=== PATIENT | female | born 1965 | race Caucasian/White ===

== ENCOUNTER → 2020-07-14 16:53 | Outpatient (CLI) | payer MEDICARE, SELFPAY ==
[2020-07-14 18:58] LABS: Coronavirus 19 IgG Antibody Negative (Negative); Coronavirus 19 IgM Antibody Negative (Negative)
== END ==
PROVIDERS: Visit Provider Internal Medicine Gastroenterology
DX: Z01.812 Encounter for preprocedural laboratory examination (principal); Z11.52 Encounter for screening for COVID-19; Z12.11 Encounter for screening for malignant neoplasm of colon
CPT/HCPCS: 36415; 86328

== ENCOUNTER 2020-07-17 12:07 | Day surgery (SDC) | payer MEDICARE, SELFPAY ==
[2020-07-11 13:37] VITALS: BMI 23.3
[2020-07-17] VITALS (7 sets, daily range): BP systolic 124–161; BP diastolic 54–81; PULSE 52–67; RESP 18–20; TEMP 36.3–36.5; O2SAT 99–100
--- NOTE | 2020-07-17 13:57 | HMH.PROC ---
[facility] Procedure Note Procedure Note:: Colonoscopy Procedure Report: Colonoscopy with cold snare polypectomy Endoscopist: Alex Castano II, MD Referring physician: Gisele Garcia MD/CORY Arvizu Date of Procedure: July 17, 2020 Equipment: Olympus 180 variable stiffness pediatric colonoscope Sedation: MAC sedation Indication: Mrs. Lanza is a 55-year-old female who is here for screening colonoscopy. She did have an attempted colonoscopy in November 2015 and report states that the colonoscope could not be passed beyond the splenic flexure because of acute angulation (Dr. Shakeel Sales). The patient does report that her constipation has improved since she started Ozempic for her arthritis. The patient does have some occasional discomfort in the lower abdomen. The patient reports no rectal bleeding, unintentional weight loss or family history of colon cancer. Procedure: Prior to the procedure, a history and physical exam was performed, and patient's medications and allergies were reviewed. The risks, benefits and alternatives of the sedation and procedure were discussed with the patient. All questions were answered and informed consent was obtained. The patient was brought to the procedure room. Patient identification and proposed procedure were verified by the physician and the nurse. The patient was placed in a left lateral decubitus position and the scope was passed under direct vision. Throughout the procedure, the patient's blood pressure, pulse, and oxygen saturations were monitored continuously. The colonoscopy was accomplished without difficulty. The patient tolerated the procedure well. Findings: On digital rectal examination there was normal rectal tone. There were no external hemorrhoids. The colonoscope was introduced through the anal canal to the rectum and advanced to the cecum. The ileocecal valve and appendiceal orifice were identified. The scope was advanced a short distance into the ileum which appeared grossly normal. The scope was then withdrawn into the colon. The cecum and ascending colon were normal. There was 2 diminutive polyps (transverse x1 (4 mm) and sigmoid x1 (3 mm)) which were removed via cold snare polypectomy. There was some angulation in the sigmoid colon possibly from prior hysterectomy. There were scattered diverticuli throughout the descending and sigmoid colon (LEFT colon). The rectum itself was normal. Upon retroflexion within the rectum there were grade 1-2 internal hemorrhoids. The preparation was excellent throughout with [place] Preparation Score of 9. The cecal time was 12 minutes. Impression: 1. Diminutive colonic polyps x2 2. Left-sided diverticulosis 3. Grade 1-2 internal hemorrhoids Plan: I will follow up the polyp pathology and recommend repeat colonoscopy again in 5-7 years based upon the polyp histology. I would encourage a fiber bowel regimen on a long-term daily maintenance basis.
== END 2020-07-17 14:50 | disposition home or self-care (01) ==
LOC: OUTP 12:11
PROVIDERS: PCP Family Medicine; Visit Provider Internal Medicine Gastroenterology
PROC: 0DJD8ZZ Inspection of Lower Intestinal Tract, Via Natural or Artificial Opening Endoscopic (ICD-10-PCS; CPT 45378; principal; 2020-07-17 13:00)
DX: Z12.11 Encounter for screening for malignant neoplasm of colon (principal); K63.5 Polyp of colon; K57.30 Diverticulosis of large intestine without perforation or abscess without bleeding; K64.0 First degree hemorrhoids; F32.9 Major depressive disorder, single episode, unspecified; G43.909 Migraine, unspecified, not intractable, without status migrainosus; E78.5 Hyperlipidemia, unspecified; K21.9 Gastro-esophageal reflux disease without esophagitis; Z88.0 Allergy status to penicillin; Z79.899 Other long term (current) drug therapy
CPT/HCPCS: 45385; 88305

== ENCOUNTER → 2020-08-18 10:11 | Outpatient (CLI) | payer MEDICAID, SELFPAY ==
[2020-08-18 14:54] LABS: Basophils % 0.6 % (0.1-2.0); Eosinophils # 0.1 K/mm3 (0.0-0.4); Eosinophils % 1.7 % (0.1-12.0); Hematocrit 41.8 % (37.0-47.0); Hemoglobin 13.4 g/dL (12.2-16.2); Lymphocytes % 42.1 % (10-50); Mean Corpuscular Hemoglobin 31.9 pg (27.0-31.2); Mean Corpuscular Volume 99.7 fl (81-99); Mean Platelet Volume 9.3 fl (7.4-10.4); Monocytes # 0.2 K/mm3 (0.1-1.0); Monocytes % 5.1 % (1.7-9.3); Neutrophils # 2.4 K/mm3 (1.8-7.8); Neutrophils % 50.4 % (37.0-80.0); Platelet Count 283 K/mm3 (142-424); Red Blood Count 4.19 M/mm3 (4.20-5.40); Red Cell Distribution Width 13.2 % (11.5-17.5); White Blood Count 4.7 K/mm3 (4.8-10.8)
[2020-08-18 16:15] LABS: Chloride 112 mmol/L (98-107); Potassium 3.7 mmoL/L (3.5-5.1); Sodium 140 mmol/L (136-145)
[2020-08-18 16:18] LABS: Anion Gap 9.7 mEq/L (5-15); Blood Urea Nitrogen 21 mg/dl (7-17); Calcium 9.4 mg/dl (8.4-10.2); Carbon Dioxide 22 mmol/L (22.0-30.0); Estimated Glomerular Filt Rate 57 ml/min (>60); GFR (African American) 69 ML/MIN (>60); Glucose 98 mg/dl (74-100)
[2020-08-18 17:50] LABS: Coronavirus 19 IgG Antibody Negative (Negative); Coronavirus 19 IgM Antibody Negative (Negative)
== END ==
PROVIDERS: Visit Provider Urology
DX: Z01.812 Encounter for preprocedural laboratory examination (principal); Z20.822 Contact with and (suspected) exposure to COVID-19; N39.41 Urge incontinence; R32 Unspecified urinary incontinence
CPT/HCPCS: 36415; 80048; 85025; 86328

== ENCOUNTER 2020-08-21 09:38 | Day surgery (SDC) | payer MEDICAID, SELFPAY ==
[2020-08-10 11:57] VITALS: BMI 23.1
[2020-08-21 10:20] VITALS: BP 120/72; PULSE 53; RESP 18; TEMP 36.1; O2SAT 99
[2020-08-21 13:35] VITALS: BP 120/78; PULSE 70; RESP 18; O2SAT 98
[2020-08-21 13:45] VITALS: BP 132/79; PULSE 64; RESP 18; O2SAT 97
[2020-08-21 14:05] VITALS: BP 151/93; PULSE 63; RESP 18; O2SAT 99
--- NOTE | 2020-08-21 14:44 | HMH.ANESCL ---
[facility] Anesthesia Checklist - Patient Identification Patient Identification: Arm Band - Structural Data Admitted From: Home Planned Operative Procedure/s: cystoscopy Consent for Planned Operative Procedure(s) Verified: Yes Verified Documents: Surgical Consent, History and Physical - NPO Status Verified Time NPO: 00:00 - Additional verifications Anesthesia Reactions: No Hx Blood Transfusions: No Blood Transfusion Reaction: No - Airway Assessment C-Spine Mobility Assessed: Yes (mp2) TMJ Mobility Assessed: Yes Dentition: Good Dentition (lower partial removed) - Neurological Assessment Level of Consciousness: Awake, Alert - Anesthesia Plan Anesthesia Risk discussed: Yes Anesthesia Plan: Verified ASA Class: III Anesthesia Type: MAC [facility] History I have reviewed the patient's past medical history: Yes Medical History: Reports:: Cancer (cervical, skin ca x2), Hyperlipidemia, Kidney Stones, Migraine Denies:: Diabetes Mellitus Type 1, Diabetes Mellitus Type 2, Internal Pacemaker, MRSA, Seizures *Have you ever received a pneumonia vaccine?: No *Have you received a flu vaccine this season?: No Other Medical History: Reports: Fibromyalgia. Denies: Blood Transfusion Reaction Anesthesia experience/problems:: nac Laterality Cases: Right: Arthroscopy Knee Other Surgeries: Yes: Cancer Surgery, Colonoscopy, Hysterectomy-Total, Sinus Surgery, Skin Cancer Excision, Other. No: Pacemaker Amputation: No Fractures: No - *Social History Last grade of school completed: High school graduate Smoking Status: Never smoker Alcohol Intake: never Alcohol Intake Frequency:: other Substance Use Type: denies use *Occupational Status:: disabled Housing: house Household Members: spouse *Travel in the last 8 weeks: None Family Hx:: Heart Attack, Hypertension, Stroke, Diabetes, Asthma
--- NOTE | 2020-08-21 14:54 | P.OP_ITS ---
Date of procedure: 08/21/20 Pre-op Diagnosis:: Bladder pain Post-op Diagnosis:: Interstitial cystitis, urethral stenosis Procedure performed:: Cystoscopy with urethral dilation and hydrodistention of the bladder Surgeon:: Aashish North MD EVP CHIEF EXPLORATION OFFICER:: Fox Hayward Anesthesia: LMA Estimated blood loss (mL): 0 Clinical Note:: 55-year-old white female with long history of bladder pain in the lower urinary tract symptoms presents for cystoscopic evaluation today. She has reported history of interstitial cystitis in the past. Operative findings:: There was urethral stenosis and the urethra was dilated without difficulty. The bladder showed signs of interstitial cystitis after hydrodistention. Operative note:: Patient taken to the operating room after informed consent was obtained. She was placed on the operating table in the supine position and general anesthesia administered. Preoperative antibiotics administered. She was then placed into the dorsal lithotomy position and prepped and draped in the standard surgical fashion. The urethral meatus appeared stenotic and the scope would not pass easily so the urethra was dilated with a 22, 24 and 26 Portuguese dilators. The 22 Portuguese scope then passed easily into the bladder. The bladder was examined in a systematic fashion. There is no evidence of mucosal abnormalities, stones, trabeculation or cellule formation. The ureteral orifices were in their normal anatomic position with clear reflux of urine. With 3 L saline bag at the sabi ropriate height above the patient's abdomen saline was then allowed to flow through the tubing into the bladder under gravity. When the bladder pressure increased to where there was no flow the saline was stopped and the bladder emptied. There was 550 cc in the bladder after the first field. We then looked back into the bladder and there was evidence of terminal hematuria and an ulcerated area to the right of the right trigone. There is also some bleeding noted from the floor the bladder and lateral to the left trigone. The bladder was distended once again and emptied and again 550 cc was collected with terminal hematuria. Looking back into the bladder there were no petechial hemorrhages but the ulcerated areas were still bleeding. The bladder was distended once again and again only 550 cc were obtained again there was some terminal blood. Urojet then placed into the urethra. Patient tolerated procedure well no complications. She does have evidence of interstitial cystitis and a prescription for Elmiron was given at discharge today. I will see her back in 6 weeks in follow-up. Condition: stable Disposition: same day Specimens:: None Complications:: None
[2020-08-21 15:44] VITALS: TEMP 43
== END 2020-08-21 14:09 | disposition home or self-care (01) ==
LOC: OR 09:41
PROVIDERS: PCP Family Medicine; Visit Provider Urology
PROC: 0TJB8ZZ Inspection of Bladder, Via Natural or Artificial Opening Endoscopic (ICD-10-PCS; CPT 52000; principal; 2020-08-21 11:15)
DX: N30.11 Interstitial cystitis (chronic) with hematuria; N32.89 Other specified disorders of bladder; E78.5 Hyperlipidemia, unspecified; G43.909 Migraine, unspecified, not intractable, without status migrainosus; Z85.828 Personal history of other malignant neoplasm of skin; Z85.41 Personal history of malignant neoplasm of cervix uteri; Z87.442 Personal history of urinary calculi; Z82.3 Family history of stroke; Z82.5 Family history of asthma and other chronic lower respiratory diseases; Z83.3 Family history of diabetes mellitus; Z79.899 Other long term (current) drug therapy; Z88.0 Allergy status to penicillin
CPT/HCPCS: 52281; 52260; 96374; J1956

== ENCOUNTER → 2022-08-14 11:40 | Outpatient (CLI) | payer MEDICARE, MEDICAID, SELFPAY | PROVIDERS: PCP Family Medicine; Visit Provider Family Medicine | DX: Z20.822 Contact with and (suspected) exposure to COVID-19 (principal); R05.9 Cough, unspecified; J02.9 Acute pharyngitis, unspecified | CPT/HCPCS: C9803; U0003; U0005 ==

== ENCOUNTER 2023-10-27 18:00 | Outpatient (CLI) | payer MEDICARE, MEDICAID, SELFPAY | END 2023-10-27 23:59 | disposition home or self-care (01) | LOC: LAB.DROPOF 10-28 08:20 | PROVIDERS: PCP Nurse Practitioner Family; Visit Provider Nurse Practitioner Family | DX: R51.9 Headache, unspecified (principal); R50.9 Fever, unspecified; R05.9 Cough, unspecified | CPT/HCPCS: 87635 ==

== ENCOUNTER 2024-04-26 16:54 | Outpatient (CLI) | payer MEDICARE, MEDICAID, SELFPAY ==
[2024-04-26 16:14] LABS: Basophils % 0.7 % (0.1-2.0); Eosinophils # 0.1 K/mm3 (0.0-0.4); Eosinophils % 1.6 % (0.1-12.0); Hematocrit 38.5 % (37.0-47.0); Hemoglobin 13.1 g/dL (12.2-16.2); Lymphocytes # 1.6 K/mm3 (0.7-4.5); Lymphocytes % 38.9 % (10-50); Mean Corpuscular HGB Conc 33.9 g/dL (31.8-35.4); Mean Corpuscular Hemoglobin 31.6 pg (27.0-31.2); Mean Corpuscular Volume 93.2 fl (81-99); Mean Platelet Volume 9.8 fl (7.4-10.4); Monocytes # 0.3 K/mm3 (0.1-1.0); Monocytes % 6.1 % (1.7-9.3); Neutrophils # 2.2 K/mm3 (1.8-7.8); Neutrophils % 52.8 % (37.0-80.0); Platelet Count 251 K/mm3 (142-424); Red Blood Count 4.14 M/mm3 (4.20-5.40); White Blood Count 4.2 K/mm3 (4.8-10.8)
[2024-04-26 16:48] LABS: Chloride 103 mmol/L (98-107); Sodium 138 mmol/L (136-145)
[2024-04-26 16:51] LABS: Blood Urea Nitrogen 17 mg/dl (7-17); Calcium 8.8 mg/dl (8.4-10.2); Carbon Dioxide 27 mmol/L (22.0-30.0); Estimated Glomerular Filt Rate 102 ml/min (>60); GFR (African American) 123 ML/MIN (>60); Glucose 106 mg/dl (74-100)
== END 2024-04-26 23:59 | disposition home or self-care (01) ==
LOC: LAB.DROPOF 16:54
PROVIDERS: PCP Family Medicine; Visit Provider Family Medicine
DX: R05.9 Cough, unspecified (principal); R04.2 Hemoptysis; R10.9 Unspecified abdominal pain
CPT/HCPCS: 80048; 85025

== ENCOUNTER 2025-02-14 08:56 | Outpatient (CLI) | payer MEDICARE, SELFPAY ==
--- OUTSIDE RECORDS SUMMARY | 2025-02-14 08:58 | XMS_ITS | Clinical Summary ---
Author Organization [facility] Address [address] [place] [address] Care Team Providers Care Pharmacovigilance Scientist Name Role Phone Gisele Garcia MD Primary Care Provider + Allergies Active Allergy Reactions Criticality Noted Date Comments Penicillins Rash Low 01/29/2018 Medications butalbital-aceta minophen-caffein e (FIORICET, ESGIC) 50-325-40 MG per tablet Take 1 tablet by mouth Every 6 (Six) Hours As Needed for Headache. Active HYDROcodone-acet aminophen (NORCO) 5-325 MG per tablet Take 1 tablet by mouth 2 (Two) Times a Day As Needed. Active pravastatin (PRAVACHOL) 40 MG tablet Take 1 tablet by mouth Daily. Active pentosan polysulfate (ELMIRON) 100 MG capsule Take 1 capsule by mouth 3 (Three) Times a Day Before Meals. Active topiramate (TOPAMAX) 50 MG tablet Take 1 tablet by mouth 2 (Two) Times a Day. Active sertraline (ZOLOFT) 100 MG tablet Take 1 tablet by mouth Daily. Active amitriptyline (ELAVIL) 25 MG tablet Take 1 tablet by mouth Every Night. Active oxybutynin XL (DITROPAN XL) 15 MG 24 hr tablet 08/26/2022 Act alphonse pantoprazole (PROTONIX) 40 MG EC tablet 10/01/2022 Active tiZANidine (ZANAFLEX) 4 MG tablet 09/16/2022 Active Active Problems Problem Noted Date Diagnosed Date Preop cardiovascular exam 10/11/2022 Assessment & Plan (10/11/2022 2:33 PM EDT): She reports she is feeling well and denies any chest pain, shortness of air, edema, palpitations, dizziness, or syncope. She had echo on 03/05/2022. A stress test on 04/08/2022. Normal heart cath on 05/10/2022. She has not been tested for SEVEN. She is not on any beta-blockers or blood thinners. Her blood pressure is well controlled. Abnormal stress test 04/26/2022 Overview (04/26/2022): Added automatically from request for surgery [id number] Precordial pain 04/26/2022 Overview (04/26/2022): Added automatically from request for surgery [id number] Hyperlipidemia 04/26/2022 Overview (04/26/2022): Added automatically from request for surgery [id number] Family hx of ischem heart dis and oth dis of the circ sys 04/26/2022 Overview (04/26/2022): Added automatically from request for surgery [id number] Family History Medical History Relation Name Comments Heart disease Mother Relation Name Status Comments Mother Social History Tobacco Use Types Packs/Day Years Used Date Smoking Tobacco: Never Smokeless Tobacco: Never Tobacco Cessation:Counseling Given: Not Answered Alcohol Use Standard Drinks/Week Comments Not Currently 0 (1 standard drink = 0.6 oz pur e alcohol) occasional AUDIT-C Answer Date Recorded Q1: How often do you have a drink containing alcohol? Never 05/10/2022 Q2: How many drinks containi ng alcohol do you have on a typical day when you are drinking? Patient does not drink Q3: How often do you have si x or more drinks on one occasion? Never 05/10/2022 PHQ-2 Answer Date Recorded Retired PHQ-9: Brief Depression Severity Measure Score 0 05/10/2022 Abuse Screen Answer Date Recorded Unsafe at Home or Work/School Not on file Feels Threatened by Someone? Not on file Does Anyone Keep You from Co ntacting Others or Doint Things Outside the Home? Not on file 05/12/2023 Physical Sign of Abuse Present Not on file 1 07/12/2022 Housing Stability Answer Date Recorded Current Living Arrangements Not on file 04/30 Potentially Unsafe Housing Conditions Not on shruthi e 05/12/2023 Family and Community Support Answer Isreal e Recorded Help with Day-to-Day Activities Not on file 04/08/2023 Lonely or Isolated Not on file 04/08/2023 Employment Answer Date Recorded Do you want help finding or keeping work or a aayush b? Not on file 04/08/2023 Disabilities Answer Date Recorded Concentrating, Remembering, or Making Decisions Difficulty Not on file 05/12/2023 Doing Errands Independently Difficulty Not on fi le 05/12/2023 Education Answer Date Recorded Help with school or training? Not on file Preferred Language Not on file 04/08/2023 Comments No Sex and Gender Information Value Date Recorded Sex Assigned at Not on file Legal Sex Female 1:43 PM EDT Gender Identity Not on file Sexual Orientation Not on file Last Filed Vital Signs Vital Sign Reading Time Taken Comments Blood Pressure 120/70 10/11/2022 12:39 PM EDT Pulse 78 10/11/2022 12:39 PM EDT Temperature 36.3 C (97.3 F) 05/10/2022 8:26 AM EST Respiratory Rate 16 05/10/2022 10:38 AM EST Oxygen Saturation 98% 10/11/2022 12:39 PM EDT Inhaled Oxygen Concentration - - Weight 69.9 kg (154 lb) 10/11/2022 12:39 PM EDT Height 167.6 cm (5' 6 ) 10/11/2022 12:39 PM EDT Body Mass Index 24.86 10/11/2022 12:39 PM EDT Plan of Treatment Health Maintenance Due Date Last Done Comments Annual Gynecologic Pelvic an d Breast Exam 1965 COLOGUARD 02/17/2008 COLON CANCER SCREENING 5 YEA R SIGMOIDOSCOPY 02/17/2008 COLONOSCOPY 02/17/2008 COLORECTAL CANCER SCREENING 02/17/2008 CT COLONOGRAPHY 02/17/2008 FECAL OCCULT BLOOD TEST 02/17/2008 FIT Testing (1 year) 02/17/2008 Pneumococcal Vaccine 50+ (1 of 1 - PCV) 2013 ZOSTER VACCINE (1 of 2) 2013 MAMMOGRAM 12/02/2020 12/02/2018 ANNUAL WELLNESS VISIT 10/11/2022 HEPATITIS C SCREENING 10/11/2022 LIPID PANEL 05/10/2023 05/10/2022 COVID-19 Vaccine (3 - 2023-2 5 season) 2024 09/28/2020, 08/31/2020 INFLUENZA VACCINE 03/30/2025 03/22/2017, , 06/26/2016, Additional history exists TDAP/TD VACCINES (2 - Td or Tdap) 12/03/2026 017 Procedures Procedure Name Priority Date/Time Associated Diagnosis Comments LIPID PANEL STAT 05/10/2022 8:29 AM EST from Last 3 Months or Most Recently Relevant to Health Maintenance Results * (ABNORMAL) Lipid Panel (05/10/2022 8:29 AM EST) Total Cholesterol 261(H) 0 - 200 mg/dL 05/10/2022 9:29 AM EST [facility] Triglycerides 241(H) 0 - 150 mg/dL 05/10/2022 9:29 AM EST [facility] HDL Cholesterol 65(H) 40 - 60 mg/dL 05/10/2022 9:29 AM EST [facility] LDL Cholesterol 152(H) 0 - 100 mg/dL 05/10/2022 9:29 AM EST [facility] VLDL Cholesterol 44(H) 5 - 40 mg/dL 05/10/2022 9:29 AM EST [facility] LDL/HDL Ratio 2.27 05/10/2022 9:29 AM EST [facility] Blood Line / Unknown 05/10/2022 8: 29 AM EST 05/10/2022 8:56 AM EST [facility] - 05/10/2022 9:29 AM EST Cholesterol Reference Ranges (U.S. Department of Health and Human Services ATP III Classifications) Desirable <200 mg/dL Borderline High 200-239 mg/dL High Risk >240 mg/dL Triglyceride Reference Ranges (U.S. Department of Health and Human Services ATP III Classifications) Normal <150 mg/dL Borderline High 150-199 mg/dL High 200-499 mg/dL Very High >500 mg/dL HDL Reference Ranges (U.S. Department of Health and Human Services ATP III Classifications) Low <40 mg/dl (major risk factor for CHD) High >60 mg/dl ('negative' risk factor for CHD) LDL Reference Ranges (U.S. Department of Health and Human Services ATP III Classifications) Optimal <100 mg/dL Near Optimal 100-129 mg/dL Borderline High 130-159 mg/dL High 160-189 mg/dL Very High >189 mg/dL Sophia Finnegan APRN LAB BLOOD ORDERABLES Final Result [facility]
[address] [place] [address], from Last 3 Months or Most Recently Relevant to Health Maintenance [place] [address] [place] [address] MEDICARE ADVANTAGE [employer] MEDICA[employer] Care Teams Pharmacovigilance Scientist Relationship Specialty Start Date End Date Gisele Garcia MD [address] [place] [id number] PCP - General Family Medicine 01/29/18
--- OUTSIDE RECORDS SUMMARY | 2025-02-14 08:58 | XMS_ITS | Clinical Summary ---
Author Organization [facility] Address [address] [place] [address], [address] [place] [address] Care Team Providers Care Professor Of Poultry Science Name Role Phone Gisele Garcia MD Primary Care Provider [phone] Social History Tobacco Use Types Packs/Day Years Used Date Smoking Tobacco: Never Assessed Comments Unknown Sex and Gender Information Value Date Recorded Sex Assigned at Not on file Legal Sex Female 2:16 PM EDT Gender Identity Not on file Sexual Orientation Not on file Plan of Treatment Not on file Insurance [facility] MEDICAID Care Teams Professor Of Poultry Science Relationship Specialty Start Date End Date Gisele Garcia MD [address] [facility], [address] [place] [address] PCP - General 12/02/18
--- NOTE | 2025-02-14 09:00 | MM_ITS ---
FINAL REPORT CLINICAL HISTORY: VERIFY CLIP PLACEMENT FINDINGS: MAMMOGRAM RIGHT TECHNIQUE: Standard digital 2-D views COMPARISON: Screening mammogram 12/29/2024 and diagnosed 01/13/2025 DENSITY: There are scattered areas of fibroglandular density FINDINGS: Post biopsy marker clip is noted to be in satisfactory position. Postbiopsy changes are noted. Calcifications of interest are markedly reduced in number reflecting adequate sampling from recent biopsy. IMPRESSION: Biopsy marker clip in good position ASSESSMENT: A post-procedure mammogram is used to confirm the position and deployment of a breast tissue marker after a biopsy RECOMMENDATION: 6 month mammographic follow-up as part of normal post benign biopsy surveillance Authenticated and ERN
--- NOTE | 2025-02-14 09:00 | MM_ITS ---
FINAL REPORT CLINICAL HISTORY: RIGHT BREAST CALCS FINDINGS: STEREOTACTIC GUIDED RIGHT BREAST BIOPSY, CLIP PLACEMENT, SPECIMEN RADIOGRAPH AND POST BIOPSY MAMMOGRAM Indication: Suspicious calcifications Findings: The stereotactic guided breast biopsy procedure was explained in detail to the patient including potential risk and benefits. The patient voiced an understanding of the procedure, was given an opportunity to ask questions, after which informed consent was obtained. The patient was positioned upon the stereotactic unit in the prone position. The breast was prepped in the usual sterile fashion. A lateral to medial approach was utilized. Subcutaneous soft tissues were anesthetized with lidocaine with epinephrine. Subsequently, with intermittent stereotactic guidance, the stereotactic biopsy needle was advanced into the breast in the region of the mammographic abnormality corresponding to recent diagnostic mammogram. Multiple vacuum assisted core samples were obtained. Sampling was thought to be adequate and the biopsy clip marker was deployed in the region of biopsy. Additional imaging as detailed below was performed. Specimen radiograph: Calcifications confirmed adequate Post procedure routine CC and MLO view mammogram: Post biopsy changes. Biopsy marker clip noted to be in the appropriate location. Calcifications of interest near completely removed. Patient tolerated the procedure well. No immediate complications. IMPRESSION: 1. Technically successful stereotactic guided biopsy of right breast calcifications 2. Biopsy marker clip deployed 3. Post biopsy mammogram obtained as above Histopathology results reveal fat necrosis without atypical hyperplasia or carcinoma. Pathology is concordant with mammographic findings. Recommend 6 month mammographic follow-up as routine benign postbiopsy surveillance. Given benign findings as above short-term mammographic follow-up right breast is recommended in 6 months as part of normal benign biopsy surveillance Authenticated and ERN
--- NOTE | 2025-02-14 09:00 | MM_ITS ---
FINAL REPORT CLINICAL HISTORY: SURGICAL SPECIMEN FINDINGS: Specimen radiograph shows calcifications of interest within multiple core tissue specimens. Authenticated and ERN
[2025-02-14] MEDS: HYDROCODONE/APAP 5/325 MG TABLET 1 TAB PO (09:05)
[2025-02-14] MEDS: LIDOCAINE 1% W/EPI 1:100,000 20ML VIAL IJ (11:56)
[2025-02-14] MEDS: RAD-SODIUM CHLORIDE 0.9% 250ML BAG 100 ML IV (11:56)
== END 2025-02-14 23:59 | disposition home or self-care (01) ==
LOC: RAD 08:57
PROVIDERS: Visit Provider Family Medicine
DX: N64.1 Fat necrosis of breast (principal); R92.8 Other abnormal and inconclusive findings on diagnostic imaging of breast
CPT/HCPCS: 19081; 76098; 77065; J2004; J7050

== ENCOUNTER 2025-06-14 15:20 | Outpatient (CLI) | payer MEDICARE, SELFPAY ==
[2025-06-15 15:45] LABS: Hematocrit 41.3 % (37.0-47.0); Hemoglobin 12.8 g/dL (12.2-16.2); Immature Granulocytes % 0.2 %; Mean Corpuscular HGB Conc 31.0 g/dL (31.8-35.4); Mean Corpuscular Hemoglobin 30.7 pg (27.0-31.2); Mean Corpuscular Volume 99.0 fl (81-99); Nucleated Red Blood Cells % 0 %; Platelet Count 259 K/mm3 (142-424); Red Blood Count 4.17 M/mm3 (4.20-5.40); Red Cell Distribution Width-SD 52.8 fL; White Blood Count 5.0 K/mm3 (4.8-10.8)
[2025-06-15 16:36] LABS: 25-OH Vitamin D, Total 13.2 ng/mL (30-100)
--- OUTSIDE RECORDS SUMMARY | 2025-06-15 20:42 | XMS_ITS | Encounter Summary ---
Author Organization [facility] Address [address] [place] [address] Care Team Providers Care Pig Conveyor Operator Name Role Phone Gisele Garcia MD Primary Care Provider + Reason for Visit * Reason Onset Date Comments - FADIA 06/14/2025 Encounter Details Date Type Department Care Team (Late st Contact Info) Description 06/14/2025 Telephone [facility] [address] [place] [address] Lizeth Salinas MD [address] [place] [address] - FADIA Social History Tobacco Use Types Packs/Day Years Used Date Smoking Tobacco: Never Smokeless Tobacco: Never Alcohol Use Standard Drinks/Week Comments Not Currently [...] on file Sexual Orientation Not on file documented as of this encounter Miscellaneous Notes * Telephone Encounter - Fracisco Landers CMA - 06/14/2025 3:31 PM EST ADVISED PATIENT TO GO TO NEAREST ER TO BE CHECKED OUT FOR SYMPTOMS * Telephone Encounter - Rohan Jackson RegSched Rep - 06/14/2025 3:26 PM EST Caller: Leela Lanza Relationship to patient: Self Best call back number: [phone] Chief complaint: PATIENT NEEDS TO BE SEEN DUE TO BACK AND SHOULDER PAINS ALSO ON JAW WITH HEART PALP Type of visit: FOLLOW-UP Requested date: HOLDEN documented in this encounter Plan of Treatment Not on file documented as of this encounter Visit Diagnoses Not on filedocumented in this encounter Care Teams Pig Conveyor Operator Relationship Specialty Start Date End Date Gisele Garcia MD [address] [place] [address] PCP - General Family Medicine 01/29/18 documented as of this encounter
--- OUTSIDE RECORDS SUMMARY | 2025-06-15 20:43 | XMS_ITS | Clinical Summary ---
Author Organization [facility] Address [address] [place] [address], [address] [place] [address] Care Team Providers Care Survey Superintendent Name Role Phone Gisele Garcia MD Primary Care Provider [phone] Social History Tobacco Use Types Packs/Day Years Used Date Smoking Tobacco: Never Assessed Comments Unknown Sex and Gender Information Value Date Recorded Sex Assigned at Not on file Legal Sex Female 2:16 PM EDT Gender Identity Not on file Sexual Orientation Not on file Plan of Treatment Not on file Insurance [facility] MEDICAID Care Teams Survey Superintendent Relationship Specialty Start Date End Date Gisele Garcia MD [address] [facility], [address] [place] [address] PCP - General 12/02/18
--- OUTSIDE RECORDS SUMMARY | 2025-06-15 20:43 | XMS_ITS | Clinical Summary ---
Author Organization [facility] Address [address] [place] [address] Care Team Providers Care Clinical Statistics Manager Name Role Phone Gisele Garcia MD Primary [...] (04/26/2022): Added automatically from request for surgery [id number] Precordial pain 04/26/2022 Overview (04/26/2022): Added automatically from request for surgery [id number] Hyperlipidemia 04/26/2022 Overview (04/26/2022): Added automatically from request for surgery [id number] Family hx of ischem heart dis and oth dis of the circ sys 04/26/2022 Overview (04/26/2022): Added automatically from request for surgery [id number] Encounters Date Type Department Care Team Description 06/14/2025 Telephone [facility] [address] [place] [address][email or web address]- REQUEST from Last 3 Months Family History Medical History Relation Name Comments [...] C SCREENING 10/11/2022 LIPID PANEL 05/10/2023 05/10/2022 INFLUENZA VACCINE 01/28/2025 03/22/2017, , 06/26/2016, Additional history exists TDAP/TD VACCINES (2 - Td or Tdap) 12/03/2026 017 Procedures Procedure Name Priority Date/Time Associated Diagnosis Comments LIPID PANEL STAT 05/10/2022 8:29 AM EST from Last 3 Months or Most Recently Relevant to Health Maintenance Results * (ABNORMAL) Lipid Panel (05/10/2022 8:29 AM EST) Total Cholesterol 261(H) 0 - 200 mg/dL 05/10/2022 9:29 AM EST [facility] Triglycerides 241(H) 0 - 150 mg/dL 05/10/2022 9:29 AM EST [facility] HDL Cholesterol 65(H) 40 - 60 mg/dL 05/10/2022 9:29 AM EST [facility] LDL Cholesterol 152(H) 0 - 100 mg/dL 05/10/2022 9:29 AM EST [facility] VLDL Cholesterol 44(H) 5 - 40 mg/dL 05/10/2022 9:29 AM EST [facility] LDL/HDL Ratio 2.27 05/10/2022 9:29 AM EST [facility] Blood Line / Unknown 05/10/2022 8: 29 AM EST 05/10/2022 8:56 AM EST [facility] - 05/10/2022 9:29 AM EST Cholesterol [...] Finnegan APRN LAB BLOOD ORDERABLES Final Result [facility]
[address] [place] [address], from Last 3 Months or Most Recently Relevant to Health Maintenance Insurance [place] [address] [address] MEDICARE ADVANTAGE [employer] Care Teams Clinical Statistics Manager Relationship Specialty Start Date End Date Gisele Garcia MD [address] [place] [id number] PCP - General Family Medicine 01/29/18
[2025-06-17 08:43] LABS: Hepatitis B Surface Antigen Negative (Negative)
== END 2025-06-14 23:59 | disposition home or self-care (01) ==
LOC: LAB.DROPOF 06-15 20:27
PROVIDERS: PCP Nurse Practitioner Family; Visit Provider Nurse Practitioner Family
DX: R42 Dizziness and giddiness (principal); R55 Syncope and collapse; R53.83 Other fatigue; Z11.59 Encounter for screening for other viral diseases; Z11.4 Encounter for screening for human immunodeficiency virus [HIV]; R73.03 Prediabetes
CPT/HCPCS: 82306; 85025; 87340; 87389